=== PATIENT | female | born 1955 | race Caucasian/White ===

== ENCOUNTER 2018-08-29 01:41 | Emergency (ER) | payer BC ==
[~2018-08-29] VITALS: Ht 157.5 cm; Wt 47.8 kg
[2018-08-29 01:54] VITALS: Ht 157.5 cm; Wt 47.8 kg
--- NOTE | 2018-08-29 02:28 | ERD ---
ER Documentation Chief Complaint Chief Complaint FEVER HPI The patient is a 62-year-old female, presenting to the ER because of inter mittent fever for more than a week. She just came back from [place] yesterday after spending a week over there. She did not take any exotic tours, simply relaxed at the beach and denied any mosquitos bite. She complains of fever using the morning in the evening, denies nasal congestion, sore throat, cough, neck pain, chest pain, dyspnea, abdominal pain, vomiting, dysuria, diarrhea, skin rash. She smokes and drinks.She is Dr Montgomery's Past medical history: Peripheral neuropathy, anxiety, essential tremor Surgical history: Cataract ROS All systems reviewed and are negative except as per history of present illness. Medications Home Meds Active Scripts Ciprofloxacin Hcl* (Ciprofloxacin Hcl*) 500 Mg Tablet, 500 MG PO BID for 7 Days, TAB Prov:MADI MARCANO MD 08/29/18 Ibuprofen* (Motrin*) 600 Mg Tab, 600 MG PO Q6H PRN for PAIN, #20 TAB Prov:SARINA ROUSSEAU MD 08/29/18 Sulfamethoxazole/Trimethoprim* (Bactrim Ds* Tablet) 1 Each Tablet, 1 TAB PO BID, #20 TAB Prov:SARINA ROUSSEAU MD 08/29/18 Allergies Allergies: Coded Allergies: erythromycin base (Verified Allergy, Unknown, 08/29/18) PMhx/Soc History of Surgery: No Hx Miscellaneous Medical Probl: Yes (hypotension, essential tremor, peripheral neuropathy) Hx Alcohol Use: Yes (daily) Hx Substance Use: No Hx Tobacco Use: Yes Smoking Status: Current every day smoker Physical Exam Vitals Vital Signs Date Temp Pulse Resp B/P (MAP) Pulse Ox O2 O2 Flow FiO2 Time Delivery Rate 08/29/18 99 18 105/73 99 Room Air 04:48 (84) 08/29/18 99.8 118 20 107/55 94 01:54 (72) Physical Exam Const: No acute distress. Head: Atraumatic. Eyes: Normal Conjunctiva. ENT: Normal External Ears, Nose and Mouth. Neck: Full range of motion. No meningismus. Resp: Clear to auscultation bilaterally. Cardio: Regular tachycardic Abd: Soft, non distended, normal bowel sounds, non tender. Skin: No petechiae or rashes. Back: No midline or flank tenderness. Ext: No cyanosis, or edema. Neur: Awake and alert. No focal deficit Psych: Normal Mood and Affect. Result Diagram: 08/29/18 0234 08/29/18 0234 Results 24 hrs Laboratory Tests Test 08/29/18 02:34 08/29/18 02:48 08/29/18 03:58 White Blood Count 9.2 10^3/ul Red Blood Count 2.89 10^6/ul Hemoglobin 9.7 g/dl Hematocrit 30.2 % Mean Corpuscular Volume 104.5 fl Mean Corpuscular Hemoglobin 33.6 pg Mean Corpuscular 32.1 g/dl Hemoglobin Concent Red Cell Distribution Width 14.2 % Platelet Count 289 10^3/UL Mean Platelet Volume 8.8 fl Immature Granulocytes % 1.200 % Neutrophils % 88.5 % Lymphocytes % 8.4 % Monocytes % 1.4 % Eosinophils % 0.1 % Basophils % 0.4 % Nucleated Red Blood Cells % 0.0 /100WBC Immature Granulocytes # 0.110 10^3/ul Neutrophils # 8.1 10^3/ul Lymphocytes # 0.8 10^3/ul Monocytes # 0.1 10^3/ul Eosinophils # 0.0 10^3/ul Basophils # 0.0 10^3/ul Nucleated Red Blood Cells # 0.0 10^3/ul Prothrombin Time 12.1 Sec Prothrombin Time Ratio 0.9 INR International 0.89 Normalized Ratio Activated Partial Thromboplast 27.1 Sec Time Sodium Level 136 mmol/L Potassium Level 3.8 mmol/L Chloride Level 105 mmol/L Carbon Dioxide Level 26 mmol/L Anion Gap 5 Blood Urea Nitrogen 12 mg/dl Creatinine 0.67 mg/dl Est Glomerular Filtrat > 60 mL/min Rate mL/min Glucose Level 124 mg/dl Calcium Level 8.8 mg/dl Total Bilirubin 0.4 mg/dl Direct Bilirubin 0.00 mg/dl Indirect Bilirubin 0.4 mg/dl Aspartate Amino 30 IU/L Transf (AST/SGOT) Alanine 35 IU/L Aminotransferase (ALT/SGPT) Alkaline Phosphatase 118 IU/L Troponin I 0.043 ng/ml Total Protein 6.4 g/dl Albumin 3.3 g/dl Globulin 3.10 g/dl Albumin/Globulin Ratio 1.06 Ethyl Alcohol Level < 10.0 mg/dl POC Venous Lactate 1.2 mmol/L Urine Color YELLOW Urine Clarity SLIGHTLY CLOUDY Urine pH 6.0 Urine Specific [place] 1.011 Urine Ketones TRACE mg/dL Urine Nitrite POSITIVE mg/dL Urine Bilirubin NEGATIVE mg/dL Urine Urobilinogen NEGATIVE mg/dL Urine Leukocyte Esterase 3+ Charles/ul Urine Microscopic RBC 1 /HPF Urine Microscopic WBC 59 /HPF Urine Squamous Epithelial Cells FEW /HPF Urine Bacteria MANY /HPF Urine Hemoglobin 1+ mg/dL Urine Glucose NEGATIVE mg/dL Urine Total Protein NEGATIVE mg/dl Urine Opiates Screen Negative Urine Barbiturates Negative Urine Amphetamines Screen Negative Urine Benzodiazepines Screen Positive Urine Cocaine Screen Negative Urine Cannabinoids Negative Current Medications Medications Dose Sig/Kitty Start Time Status Last (Trade) Ordered Route PRN Stop Time Admin Dose Reason Admin Sodium 1,430 ml BOLUS OVER 2 08/29/18 DC 08/29/18 Chloride HOURS STAT 02:29 03:10 (NS) IV* 08/29/18 02:30 Ceftriaxone 50 ml @ ONCE ONCE 08/29/18 DC 08/29/18 Sodium 100 mls/hr IVPB 04:30 04:26 08/29/18 04:49 Procedures/MDM [place] [id number] Radiology Main Line: [phone] DIAGNOSTIC IMAGING REPORT Patient: RONALD SCHMIDT : 1955 Age: 62 Sex: F MR #: [id number] DOS: 08/29/18 0229 Ordering MD: SARINA ROUSSEAU MD Location: E/R Room/Bed: PROCEDURE: XR Chest. CLINICAL INDICATION: Sepsis TECHNIQUE: AP Portable chest. COMPARISON: CT CHEST 03/21/2012 FINDINGS: The cardiomediastinal silhouette is normal.The aortic arch is calcified. No focal consolidation, pleural effusion or pneumothorax is seen. Left basilar atelectasis or scarring is seen. Old left humeral neck and right rib fractures are seen. IMPRESSION: No radiographic evidence of acute cardiopulmonary disease. [facility] Physician Danny Date Time Electronically viewed and signed by Physician Danny on 08/29/2018 04:30 CS/ CC: SARINA ROUSSEAU MD [id number] EKG: Read by emergency physician Rate/Rhythm: Sinus tachycardia 103 beats/min QRS, ST, T-waves: No ST elevation, no T inversion, LAE, nonspecific ST abnormality abnormal Impression: Abnormal EKG MEDICAL MAKING DECISION: The patient is a 62-year-old female, presenting with acute cystitis, acute dehydration. She was treated with normal saline 30 mm/kg IV for acute dehydration, Rocephin 1 g IV and felt much better The differential diagnoses considered include but are not limited to UTI, pyel onephritis, pneumonia Departure Diagnosis: Primary Impression: UTI (urinary tract infection) Additional Impressions: Dehydration Anemia Condition: Good Comments She was discharged with Bactrim DS per Dr. Schmidt request I discussed the findings with the patient. I advised the patient to follow-up with the primary physician in about 2-3 days, sooner if needed and return if any concern. Disclaimer: Inadvertent spelling and grammatical errors are likely due to EHR/dictation software use and do not reflect on the overall quality of patient care. Also, please note that the electronic time recorded on this note does not necessarily reflect the actual time of the patient encounter. SARINA ROUSSEAU MD August 29, 2018 02:28
[2018-08-29] MEDS ORDERED: SODIUM CHLORIDE 0.9% 1L BAG IV* STA (02:29)
[2018-08-29] MEDS ORDERED: SULF1TAB31 PO (04:23)
[2018-08-29] MEDS ORDERED: IBUP-1542 PO (04:24)
[2018-08-29] MEDS ORDERED: CEFTRIAXONE 1 GM/50 ML (PMX) 50 ML IVPB ONE (04:30)
[2018-08-29 04:48] VITALS: BP 105/73; PULSE 99; RESP 18
--- NOTE | 2018-08-29 18:18 | QN ---
Documentation Comment A phone call was placed to the patient. I was able to speak to her who is a physician at our facility. We discussed the gram-negative rods in the blood culture. I strongly recommended return to the hospital for further evaluation, IV antibiotics and hospitalization for culture monitoring. He feels that the patient is doing much better would like to observe her at home. We did discuss the risks of this process including bacteremia sepsis. He verbalized understanding. Return precautions were discussed and understood. JODY GUERRA MD August 29, 2018 18:18
[2018-08-29] MEDS ORDERED: CIPR500T4 PO (19:47)
== END 2018-08-29 04:49 | disposition home or self-care (01) ==
LOC: EEVIPCON 01:41 → E/R 01:41
DX: N39.0 Urinary tract infection, site not specified (principal); F17.210 Nicotine dependence, cigarettes, uncomplicated; E86.0 Dehydration; D64.9 Anemia, unspecified
CPT/HCPCS: 36415; 71045; 80053; 80307; 81001; 83605; 84484; 85025; 85610; 85730; 87040; 87086; 93005; 96374; 99285; J0696; J7030

== ENCOUNTER 2018-08-29 19:16 | Emergency (ER) | payer BC ==
[~2018-08-29] VITALS: Ht 160 cm; Wt 50.0 kg
[~2018-08-29 19:16] MED LIST: IBUP-1542 PO; SULF1TAB31 PO
[2018-08-29] MEDS ORDERED: CEFTRIAXONE 1 GM/50 ML (PMX) 50 ML IVPB STA (19:17)
[2018-08-29] MEDS ORDERED: IBUPROFEN 800 MG TAB PO ONE (19:30)
[2018-08-29 19:34] VITALS: Ht 160 cm; Wt 50.0 kg
[2018-08-29] MEDS ORDERED: CIPR500T4 PO (19:47)
[2018-08-29 19:59] VITALS: BP 112/63; PULSE 95; RESP 16
--- NOTE | 2018-08-29 22:02 | ERD ---
ER Documentation Chief Complaint Chief Complaint pt c/o UTI symptoms. requesting lab work. HPI Patient is a 62-year-old female with no medical problems who presents for positive blood cultures. The patient was seen yesterday and diagnosed with UTI. She got a dose of ceftriaxone and was given a prescription for Bactrim. She was discharged from the emergency department. The patient is the of Dr. Gaines who is an infectious disease doctor at our hospital. She feels better today than yesterday. She no longer has the shaking chills that she had yesterday. She has had fevers over the past few days. She took Tylenol just prior to coming into the emergency department. Her primary doctor is Dr. Archer. ROS All systems reviewed and are negative except as per history of present illness. Medications Home Meds Active Scripts Ciprofloxacin Hcl* (Ciprofloxacin Hcl*) 500 Mg Tablet, 500 MG PO BID for 7 Days, TAB Prov:MADI MARCANO MD 08/29/18 Ibuprofen* (Motrin*) 600 Mg Tab, 600 MG PO Q6H PRN for PAIN, #20 TAB Prov:SARINA ROUSSEAU MD 08/29/18 Sulfamethoxazole/Trimethoprim* (Bactrim Ds* Tablet) 1 Each Tablet, 1 TAB PO BID, #20 TAB Prov:SARINA ROUSSEAU MD 08/29/18 Allergies Allergies: Coded Allergies: erythromycin base (Verified Allergy, Unknown, 08/29/18) PMhx/Soc History of Surgery: No Hx Miscellaneous Medical Probl: Yes (hypotension, essential tremor, peripheral neuropathy) Hx Alcohol Use: Yes (daily) Hx Substance Use: No Hx Tobacco Use: Yes Smoking Status: Smoker,current status unk FmHx Family History: No diabetes Physical Exam Vitals Vital Signs Date Temp Pulse Resp B/P (MAP) Pulse Ox O2 O2 Flow FiO2 Time Delivery Rate 08/29/18 95 16 112/63 96 Room Air 19:59 (79) 08/29/18 102.0 19:43 08/29/18 102.0 99 18 115/69 97 19:34 (84) Physical Exam Const: No acute distress Head: Atraumatic Eyes: Normal Conjunctiva ENT: Normal External Ears, Nose and Mouth. Neck: Full range of motion. No meningismus. Resp: Clear to auscultation bilaterally Cardio: Regular rate and rhythm, no murmurs Abd: Soft, non tender, non distended. Normal bowel sounds Skin: No petechiae or rashes Back: No midline or flank tenderness Ext: No cyanosis, or edema Neur: Awake and alert Psych: Normal Mood and Affect Result Diagram: 08/29/18193008/29/181930 Results 24 hrs Laboratory Tests Test 08/29/18 19:31 08/29/18 19:33 White Blood Count 12.6 10^3/ul Red Blood Count 3.08 10^6/ul Hemoglobin 10.3 g/dl Hematocrit 32.0 % Mean Corpuscular Volume 103.9 fl Mean Corpuscular Hemoglobin 33.4 pg Mean Corpuscular Hemoglobin Concent 32.2 g/dl Red Cell Distribution Width 14.2 % Platelet Count 318 10^3/UL Mean Platelet Volume 8.9 fl Immature Granulocytes % 1.300 % Neutrophils % 78.8 % Lymphocytes % 14.7 % Monocytes % 4.4 % Eosinophils % 0.5 % Basophils % 0.3 % Nucleated Red Blood Cells % 0.0 /100WBC Immature Granulocytes # 0.170 10^3/ul Neutrophils # 9.9 10^3/ul Lymphocytes # 1.9 10^3/ul Monocytes # 0.6 10^3/ul Eosinophils # 0.1 10^3/ul Basophils # 0.0 10^3/ul Nucleated Red Blood Cells # 0.0 10^3/ul Prothrombin Time 11.7 Sec Prothrombin Time Ratio 0.9 INR International Normalized Ratio 0.85 Activated Partial Thromboplast Time 27.1 Sec Sodium Level 136 mmol/L Potassium Level 4.1 mmol/L Chloride Level 104 mmol/L Carbon Dioxide Level 25 mmol/L Anion Gap 7 Blood Urea Nitrogen 18 mg/dl Creatinine 0.69 mg/dl Est Glomerular Filtrat Rate mL/min > 60 mL/min Glucose Level 120 mg/dl Calcium Level 9.1 mg/dl Total Bilirubin 0.2 mg/dl Direct Bilirubin 0.00 mg/dl Indirect Bilirubin 0.2 mg/dl Aspartate Amino Transf (AST/SGOT) 44 IU/L Alanine Aminotransferase (ALT/SGPT) 38 IU/L Alkaline Phosphatase 123 IU/L Troponin I 0.020 ng/ml Total Protein 6.8 g/dl Albumin 3.7 g/dl Globulin 3.10 g/dl Albumin/Globulin Ratio 1.19 POC Venous Lactate 1.1 mmol/L Current Medications Medications Dose Sig/Kitty Start Time Status Last (Trade) Ordered Route PRN Stop Time Admin Dose Reason Admin Ceftriaxone 50 ml @ ONCE STAT 08/29/18 DC 08/29/18 Sodium 100 mls/hr IVPB 19:17 19:43 08/29/18 19:46 Ibuprofen 800 mg ONCE ONCE 08/29/18 DC 08/29/18 (Motrin) PO 19:30 19:43 08/29/18 19:31 Procedures/MDM Smoking Cessation Therapy: Pt. was lectured for greater than 3 minutes on the health risks of continued smoking and the benefits of cessation. Patient is a 62-year-old female who was called back to the emergency department for positive blood cultures. She had gram-negative rods found in 2 blood c ultures. I spoke with the patient and her and offered and recommended admission for IV antibiotics. She does have bacteremia. The patient and her are refusing at this time and would prefer a dose of ceftriaxone in the emergency department and to be discharged with a prescription for Cipro. The patient should follow-up with the primary doctor within 24 to 48 hours for reevaluation. The patient can return for any worsening symptoms. She did have a fever in the emergency department and was given ibuprofen. Departure Diagnosis: Primary Impression: Bacteremia Condition: Fair Patient Instructions: Bacteremia, Rule Out (Adult), Ceftriaxone Sodium Solution for injection Additional Instructions: Call your primary care doctor TOMORROW for an appointment during the next 1-2 days.See the doctor sooner or return here if your condition worsens before your appointment time. MADI MARCANO MD August 29, 2018 22:02
== END 2018-08-29 20:06 | disposition home or self-care (01) ==
LOC: E/R 19:16
DX: R78.81 Bacteremia (principal); I10 Essential (primary) hypertension; Z87.891 Personal history of nicotine dependence
CPT/HCPCS: 80053; 83605; 84484; 85025; 85610; 85730; 87040; J0696; 36415; 96374